=== PATIENT | male | born 1960 | race Caucasian/White ===

== ENCOUNTER 2018-04-15 11:24 | Day surgery (SDC) | payer MEDICARE ==
[2018-04-15] MEDS ORDERED: Marcaine 0.5% SDV 10 ML IJ ONE (11:25)
[2018-04-15] MEDS ORDERED: Xylocaine 1% Vial 30 ML PF IJ ONE (11:25)
[2018-04-15] MEDS ORDERED: Depo-Medrol 40 MG/ML IM ONE (11:25)
--- NOTE | 2018-04-15 14:24 | XRAY ---
Indication: Right knee injection. Intraoperative fluoroscopy was provided for 19 seconds. Single digital spot image submitted for interpretation demonstrates a needle tip projecting in the intercondylar notch. Small contrast injected for needle tip placement. Correlate with intraoperative findings/report.
--- NOTE | 2018-04-15 14:36 | XRAY ---
19 seconds of fluoroscopy was used in surgery for right knee injection.
== END 2018-04-15 13:50 | disposition home or self-care (01) ==
LOC: SDC-PAIN 11:24
PROVIDERS: ATTEND Psychiatry & Neurology Pain Medicine
DX: M17.11 Unilateral primary osteoarthritis, right knee (principal); M79.7 Fibromyalgia; M19.90 Unspecified osteoarthritis, unspecified site
CPT/HCPCS: 20610; 73560; 76000; 77002; J1030; J2001; Q9966

== ENCOUNTER 2018-06-24 09:54 | Day surgery (SDC) | payer MEDICARE ==
[2018-06-24] MEDS ORDERED: Marcaine 0.5% SDV 10 ML IJ ONE (09:55)
[2018-06-24] MEDS ORDERED: Depo-Medrol 40 MG/ML IM ONE (09:55)
[2018-06-24] MEDS ORDERED: Xylocaine 1% Vial 30 ML PF IJ ONE (09:55)
--- NOTE | 2018-06-24 13:57 | XRAY ---
Indication: Right shoulder injection. Intraoperative fluoroscopy was provided for 18 seconds. Single digital spot image submitted for interpretation demonstrates needle tip projecting superomedial humeral head. Small amount of contrast injected for needle tip placement. Correlate with intraoperative findings/report.
--- NOTE | 2018-06-24 14:20 | XRAY ---
18 seconds fluoroscopy time in surgery for right shoulder injection.
== END 2018-06-24 12:13 | disposition home or self-care (01) ==
LOC: SDC-PAIN 09:54
PROVIDERS: ATTEND Psychiatry & Neurology Pain Medicine
DX: M19.019 Primary osteoarthritis, unspecified shoulder (principal); I10 Essential (primary) hypertension; M79.7 Fibromyalgia; Z79.899 Other long term (current) drug therapy
CPT/HCPCS: 20611; 73030; 77002; J1030; J2001; Q9966

== ENCOUNTER 2020-05-31 14:29 | Day surgery (SDC) | payer MEDICARE ==
[2020-05-31] MEDS ORDERED: BUPIVACAINE 0.5% VIAL IJ ONE (14:30)
[2020-05-31] MEDS ORDERED: Xylocaine 1% Vial 30 ML PF IJ ONE (14:30)
--- NOTE | 2020-05-31 16:38 | XRAY ---
Indication: Right knee geniculate nerve block. Intraoperative fluoroscopy provided for 14 seconds. 2 digital spot images of the right knee submitted for interpretation demonstrates anterior needle tips projecting medial/lateral supracondylar and medial tibial plateau. Correlate with intraoperative findings/report.
--- NOTE | 2020-05-31 16:45 | XRAY ---
14 seconds of fluoroscopy was used in surgery for a right knee genicular nerve block.
== END 2020-05-31 16:30 | disposition home or self-care (01) ==
LOC: SDC-PAIN 14:29
PROVIDERS: ATTEND Psychiatry & Neurology Pain Medicine
DX: M17.11 Unilateral primary osteoarthritis, right knee (principal); I10 Essential (primary) hypertension; M79.7 Fibromyalgia; Z79.899 Other long term (current) drug therapy
CPT/HCPCS: 64454; 73560; 77002; J2001

== ENCOUNTER 2020-07-19 13:06 | Day surgery (SDC) | payer MEDICARE | END 2020-07-19 15:00 | disposition home or self-care (01) | LOC: SDC-PAIN 13:06 | PROVIDERS: ATTEND Psychiatry & Neurology Pain Medicine | DX: Z53.8 Procedure and treatment not carried out for other reasons (principal) ==

== ENCOUNTER 2020-08-02 12:17 | Day surgery (SDC) | payer MEDICARE ==
[2020-08-02] MEDS ORDERED: BUPIVACAINE 0.5% VIAL IJ ONE (12:18)
[2020-08-02] MEDS ORDERED: Xylocaine 1% Vial 30 ML PF IJ ONE (12:18)
[2020-08-02] MEDS ORDERED: Depo-Medrol 40 MG/ML IM ONE (12:18)
[2020-08-02] MEDS ORDERED: Lactated Ringers 1,000 ML IV ONE (14:42)
--- NOTE | 2020-08-02 15:22 | XRAY ---
Indication: Right knee genicular nerve block. Intraoperative fluoroscopy was provided for 18 seconds. 2 digital spot images of the right knee submitted for interpretation demonstrate anterior needle tips projecting medial/lateral supracondylar and medial tibial plateau. Correlate with intraoperative findings/report.
--- NOTE | 2020-08-02 16:22 | XRAY ---
18 seconds of fluoroscopy was used in surgery for a right knee genicular RFA.
== END 2020-08-02 14:41 | disposition home or self-care (01) ==
LOC: SDC-PAIN 12:17
PROVIDERS: ATTEND Psychiatry & Neurology Pain Medicine
DX: M17.11 Unilateral primary osteoarthritis, right knee (principal); I10 Essential (primary) hypertension; M79.7 Fibromyalgia
CPT/HCPCS: 64454; 73560; 77002; J1030; J2001

== ENCOUNTER 2021-03-14 12:43 | Day surgery (SDC) | payer MEDICARE ==
[2021-03-14] MEDS ORDERED: Xylocaine 1% Vial 30 ML PF IJ ONE (12:44)
[2021-03-14] MEDS ORDERED: Depo-Medrol 40 MG/ML IM ONE (12:44)
[2021-03-14] MEDS ORDERED: BUPIVACAINE 0.5% VIAL IJ ONE (12:44)
--- NOTE | 2021-03-14 15:24 | XRAY ---
Indication: Right shoulder injection. Intraoperative fluoroscopy provided for 23 seconds. 2 digital spot image submitted for interpretation demonstrates needle tip projecting over the right glenohumeral joint superiorly. Second needle tip subacromial. Small amount of contrast injected for both needle tip placement. Correlate with intraoperative findings/report.
--- NOTE | 2021-03-14 16:53 | XRAY ---
23 seconds fluoroscopy time in surgery for injection of the right shoulder.
== END 2021-03-14 15:08 | disposition home or self-care (01) ==
LOC: SDC-PAIN 12:43
PROVIDERS: ATTEND Psychiatry & Neurology Pain Medicine
DX: M19.011 Primary osteoarthritis, right shoulder (principal); M75.21 Bicipital tendinitis, right shoulder; I10 Essential (primary) hypertension; F41.9 Anxiety disorder, unspecified; F32.9 Major depressive disorder, single episode, unspecified; Z79.899 Other long term (current) drug therapy
CPT/HCPCS: 20610; 73030; 77002; J1030; J2001; Q9966

== ENCOUNTER 2021-03-20 13:46 | Emergency (ER) | payer MEDICARE ==
--- NOTE | 2021-03-20 13:51 | ERPHSYRPT ---
- History of Present Illness Time Seen by Provider: 03/20/21 13:50 Source: patient Exam Limitations: no limitations Physician History: This is a 61-year-old white male who presents with left lower quadrant abdominal pain associated diarrhea. He did notice some blood in some of the bowel movements in the last 2 days. Patient has not had a fever. He has had no vomiting present. He had a colonoscopy approximately 5 years ago which she said was normal. He has no chest pain. He has no shortness of breath. Timing/Duration: day(s) (2) Method of Injury: other (No injury) Quality: aching (Left lower quadrant), cramping Severity of Pain-Max: moderate Severity of Pain-Current: moderate Modifying Factors: Improves With: nothing Associated Symptoms: other (Diarrhea) Previous symptoms: no prior history Allergies/Adverse Reactions: Sulfa (Sulfonamide Antibiotics) Allergy (Severe, Verified 02/26/16 06:28) Hives Home Medications: Duloxetine HCl 30 mg [Cymbalta 30 MG Capsule] 60 mg PO DAILY 02/22/16 [His tory] Lisinopril 20 mg [Zestril 20 MG] 40 mg PO DAILY 02/22/16 [History] Travel Risk - International Travel Have you traveled outside of the country in past 3 weeks: No - Coronavirus Screening Are you exhibiting any of the following symptoms?: No Close contact with a COVID-19 positive Pt in past 14-21 Days: No - Review of Systems Constitutional: No Symptoms Eyes: No Symptoms Ears, Nose, & Throat: No Symptoms Respiratory: No Symptoms Cardiac: No Symptoms Abdominal/Gastrointestinal: Abdominal Pain, Diarrhea (Intermittent bloody) Genitourinary Symptoms: No Symptoms Musculoskeletal: No Symptoms Skin: No Symptoms Neurological: No Symptoms Psychological: No Symptoms Endocrine: No Symptoms Hematologic/Lymphatic: No Symptoms Immunological/Allergic: No Symptoms All Other Systems: Reviewed and Negative - Past Medical History Pertinent Past Medical History: No Neurological History: No Pertinent History ENT History: No Pertinent History Cardiac History: Hypertension Respiratory History: Pneumonia Endocrine Medical History: No Pertinent History Musculoskeletal History: Osteoarthritis GI Medical History: No Pertinent History History: No Pertinent History Psycho-Social History: Anxiety Male Reproductive Disorders: No Pertinent History Other Medical History: RECENT STRESS TEST WAS FINE EXCEPT STRENGTH OF CONTRACTION SO STARTED A NEW MED (PATIENT UNABLE TO RECALL NAME). HX RIGHT SHOULDER ROTATOR CUFF AND BICEPS TEAR - REPAIRED 2013 BUT STATES NOT DOING WELL AND GOING TO F/U WITH MD ABOUT IT AT NEXT VISIT - Past Surgical History Past Surgical History: Yes Neuro Surgical History: No Pertinent History Cardiac: No Pertinent History Respiratory: No Pertinent History Gastrointestinal: No Pertinent History Genitourinary: No Pertinent History Musculoskeletal: Other Male Surgical History: No Pertinent History Other Surgical History: Rotator cuff repair. - Social History Smoking Status: Former smoker Exposure to second hand smoke: No Drug Use: none - Nursing Vital Signs Nursing Vital Signs: Initial Vital Signs Temperature 99.0 F 03/20/21 13:59 Pulse Rate 85 03/20/21 13:59 Respiratory Rate 22 03/20/21 13:59 Blood Pressure 166/99 03/20/21 13:59 O2 Sat by Pulse Oximetry 99 03/20/21 13:59 Pain Scale Pain Intensity 5 - Physical Exam General Appearance: no apparent distress, alert, anxiety, obese Eye Exam: PERRL/EOMI, eyes nml inspection Ears, Nose, Throat Exam: normal ENT inspection, moist mucous membranes Neck Exam: normal inspection, non-tender, supple, full range of motion Respiratory Exam: normal breath sounds, lungs clear, airway intact, No chest tenderness, No respiratory distress Cardiovascular Exam: regular rate/rhythm, normal heart sounds, normal peripheral pulses Gastrointestinal Exam: soft, normal bowel sounds, tenderness (Left lower quadrant with guarding), guarding, rebound Rectal Exam: not done Back Exam: normal inspection, normal range of motion, No CVA tenderness, No vertebral tenderness Extremity Exam: normal inspection, normal range of motion, pelvis stable Neurologic Exam: alert, oriented x 3, cooperative, technology education instructor II-XII nml as tested, normal mood/affect, nml cerebellar function, nml station & gait, sensation nml Skin Exam: normal color, warm, dry Lymphatic Exam: No adenopathy SpO2 Interpretation: normal O2 Delivery: Room Air - Course Nursing assessment & vital signs reviewed: Yes Ordered Tests: Active Orders 24 hr Category Date Time Status IV Insertion STAT Care 03/20/21 14:13 Active ABDOMEN AND PELVIS W/0 CONTRAS [CT] Stat Exams 03/20/21 14:13 Completed AMYLASE Stat Lab 03/20/21 14:20 Completed CBC W DIFF Stat Lab 03/20/21 14:20 Completed CMP Stat Lab 03/20/21 14:20 Completed LIPASE Stat Lab 03/20/21 14:20 Completed Lactic Acid Stat Lab 03/20/21 14:25 Completed Manual Differential NC Stat Lab 03/20/21 14:20 Completed UA W/RFX UR CULTURE Stat Lab 03/20/21 14:19 Completed Medication Summary Generic Name Dose Route Start Last Admin Trade Name Jere PRN Reason Stop Dose Admin Sodium Chloride 1,000 mls @ 999 mls/hr 03/20/21 16:05 Sodium Chloride 0.9% 1000 Ml IV 03/20/21 17:05 .Q1H1M STA Discontinued Medications Generic Name Dose Route Start Last Admin Trade Name Jere PRN Reason Stop Dose Admin Ciprofloxacin 500 mg 03/20/21 16:06 Ciprofloxacin 500 Mg Tablet PO 03/20/21 16:07 STAT ONE Hydromorphone HCl 1 mg 03/20/21 14:13 03/20/21 14:32 Hydromorphone 1 Mg/1ml Inj 1 Mg/Ml Syringe IV 03/20/21 14:14 1 mg STAT ONE Administration Hydromorphone HCl Confirm 03/20/21 14:20 Hydromorphone 1 Mg/1ml Inj 1 Mg/Ml Syringe Administered 03/20/21 14:21 Dose 1 mg .ROUTE .STK-MED ONE Sodium Chloride 1,000 mls @ 999 mls/hr 03/20/21 14:13 03/20/21 14:29 Sodium Chloride 0.9% 1000 Ml IV 03/20/21 15:13 999 mls/hr .Q1H1M STA Administration Sodium Chloride Confirm 03/20/21 14:20 Sodium Chloride 0.9% 1000 Ml Administered 03/20/21 14:21 Dose 1,000 mls @ ud .ROUTE .STK-MED ONE Metronidazole 500 mg 03/20/21 16:07 Metronidazole 500 Mg Tablet PO 03/20/21 16:08 STAT ONE Ondansetron HCl 4 mg 03/20/21 14:13 03/20/21 14:31 Ondansetron Hcl 4 Mg/2 Ml Vial IV 03/20/21 14:14 4 mg STAT ONE Administration Ondansetron HCl Confirm 03/20/21 14:20 Ondansetron Hcl 4 Mg/2 Ml Vial Administered 03/20/21 14:21 Dose 4 mg .ROUTE .STK-MED ONE Lab/Rad Data: Laboratory Result Diagrams 03/20/21 14:20 03/20/21 14:20 Laboratory Results 03/20/21 03/20/21 03/20/21 Range/Units 14:25 14:20 14:20 WBC 22.8 H (4.0-10.5) K/mm3 RBC 4.99 (4.1-5.6) M/mm3 Hgb 16.0 (12.5-18.0) gm/dl Hct 46.9 (42-50) % MCV 94.0 (78-100) fl MCH 32.1 H (26-32) pg MCHC 34.1 (32-36) g/dl RDW 12.5 (11.5-14.0) % Plt Count 341 (150-450) K/mm3 MPV 9.2 (7.5-11.0) fl Segmented Neutrophils 79 H (36.-66.) % Band Neutrophils 3 H (0.0-2.0) % Lymphocytes (Manual) 10 L (24-44) % Monocytes (Manual) 7 (0.0-12.0) % Eosinophils (Manual) 1 (0.00-3.0) % Platelet Estimate NORMAL (NORMAL) RBC Morphology NORMAL Sodium 136 L (137-145) mmol/L Potassium 4.3 (3.5-5.1) mmol/L Chloride 103 (98-107) mmol/L Carbon Dioxide 19 L (22-30) mmol/L Anion Gap 18.5 H (5-15) MEQ/L BUN 16 (9-20) mg/dL Creatinine 0.90 (0.66-1.25) mg/dL Estimated GFR > 60.0 ML/MIN Glucose 146 H (74-106) mg/dL Lactic Acid 2.1 H (0.4-2.0) Calcium 9.0 (8.4-10.2) mg/dL Total Bilirubin 0.60 (0.2-1.3) mg/dL AST 25 (17-59) U/L ALT 32 (0-50) U/L Alkaline Phosphatase 85 (38-126) U/L Serum Total Protein 7.4 (6.3-8.2) g/dL Albumin 4.4 (3.5-5.0) g/dL Amylase 102 (30-110) U/L Lipase 113 (23-300) U/L Urine Color (YELLOW) Urine Appearance (CLEAR) Urine pH (5-6) Ur Specific [place] (1.005-1.025) Urine Protein (Negative) Urine Ketones (NEGATIVE) Urine Blood (0-5) Perry/ul Urine Nitrite (NEGATIVE) Urine Bilirubin (NEGATIVE) Urine Urobilinogen (0-1) mg/dL Ur Leukocyte Esterase (NEGATIVE) Urine WBC (Auto) (0-5) /HPF Urine RBC (Auto) (0-2) /HPF U Epithel Cells (Auto) (FEW) /HPF Urine Bacteria (Auto) (NEGATIVE) /HPF Urine Mucus (Auto) (NEGATIVE) /HPF Urine Culture Reflexed (NO) Urine Glucose (NEGATIVE) mg/dL 03/20/21 Range/Units 14:19 WBC (4.0-10.5) K/mm3 RBC (4.1-5.6) M/mm3 Hgb (12.5-18.0) gm/dl Hct (42-50) % MCV (78-100) fl MCH (26-32) pg MCHC (32-36) g/dl RDW (11.5-14.0) % Plt Count (150-450) K/mm3 MPV (7.5-11.0) fl Segmented Neutrophils (36.-66.) % Band Neutrophils (0.0-2.0) % Lymphocytes (Manual) (24-44) % Monocytes (Manual) (0.0-12.0) % Eosinophils (Manual) (0.00-3.0) % Platelet Estimate (NORMAL) RBC Morphology Sodium (137-145) mmol/L Potassium (3.5-5.1) mmol/L Chloride (98-107) mmol/L Carbon Dioxide (22-30) mmol/L Anion Gap (5-15) MEQ/L BUN (9-20) mg/dL Creatinine (0.66-1.25) mg/dL Estimated GFR ML/MIN Glucose (74-106) mg/dL Lactic Acid (0.4-2.0) Calcium (8.4-10.2) mg/dL Total Bilirubin (0.2-1.3) mg/dL AST (17-59) U/L ALT (0-50) U/L Alkaline Phosphatase (38-126) U/L Serum Total Protein (6.3-8.2) g/dL Albumin (3.5-5.0) g/dL Amylase (30-110) U/L Lipase (23-300) U/L Urine Color YELLOW (YELLOW) Urine Appearance SLIGHTLY CLOUDY (CLEAR) Urine pH 7.0 (5-6) Ur Specific [place] 1.025 (1.005-1.025) Urine Protein 100 (Negative) Urine Ketones SMALL (NEGATIVE) Urine Blood NEGATIVE (0-5) Perry/ul Urine Nitrite NEGATIVE (NEGATIVE) Urine Bilirubin NEGATIVE (NEGATIVE) Urine Urobilinogen NEGATIVE (0-1) mg/dL Ur Leukocyte Esterase NEGATIVE (NEGATIVE) Urine WBC (Auto) 0-2 (0-5) /HPF Urine RBC (Auto) 3-5 (0-2) /HPF U Epithel Cells (Auto) NONE (FEW) /HPF Urine Bacteria (Auto) NONE (NEGATIVE) /HPF Urine Mucus (Auto) SLIGHT (NEGATIVE) /HPF Urine Culture Reflexed NO (NO) Urine Glucose NEGATIVE (NEGATIVE) mg/dL - Progress Progress: improved, pain not gone completely Progress Note: 03/20/21 16:12 CAT scan of the abdomen and pelvis without contrast shows no abscess or perforation. However there is mild descending colitis present. Counseled pt/family regarding: lab results, diagnosis, need for follow-up, rad results - Departure Departure Disposition: Home Clinical Impression: Colitis Condition: Stable Critical Care Time: No Referrals: KALPANA PALUMBO MD [Primary Care Provider] - Follow up/PCP as directed Additional Instructions: Drink plenty of fluids. Take your antibiotics and pain medicine as prescribed. Follow-up with your primary care physician for further management. Return to the emergency department if your symptoms worsen. Prescriptions: Hydrocodone/APAP 5/325 [[place] 5/325 mg] 1 each PO Q8H PRN PRN #7 tablet MDD 3 PRN Reason: Pain Ciprofloxacin [Cipro 500 MG] 500 mg PO BID #14 tablet Metronidazole 500 mg [Flagyl 500 MG] 500 mg PO TID #21 tablet
[2021-03-20] MEDS ORDERED: Zofran 4 MG/2 ML VIAL IV ONE (14:13)
[2021-03-20] MEDS ORDERED: Sodium Chloride 0.9% 1000 ML 1,000 ML IV STA ×2 (14:13→16:05)
[2021-03-20] MEDS ORDERED: Hydromorphone 1 mg/ml Injection IV ONE (14:13)
[2021-03-20] MEDS ORDERED: Sodium Chloride 0.9% 1000 ML 1,000 ML ONE ×2 (14:20→16:12)
[2021-03-20] MEDS ORDERED: Hydromorphone 1 mg/ml Injection ONE (14:20)
[2021-03-20] MEDS ORDERED: Zofran 4 MG/2 ML VIAL ONE (14:20)
[2021-03-20 14:30] LABS: Appearance SLIGHTLY CLOUDY (CLEAR); Bilirubin NEGATIVE (NEGATIVE); Blood NEGATIVE Ery/ul (0-5); Glucose NEGATIVE (NEGATIVE); Ketones SMALL (NEGATIVE); Leukocyte Esterase NEGATIVE (NEGATIVE); Mucus SLIGHT /HPF (NEGATIVE); Nitrite NEGATIVE (NEGATIVE); Protein,Urine Dip 100 (Negative); Specific Gravity 1.025 (1.005-1.025); Urobilinogen NEGATIVE mg/dL (0-1); WBC 0-2 /HPF (0-5)
[2021-03-20 14:30] LABS: Hematocrit 46.9 % (42-50); Mean Corpuscular Hemoglobin 32.1 pg (26-32); Mean Corpuscular Hgb Concent. 34.1 g/dl (32-36); Mean Platelet Volume 9.2 fl (7.5-11.0); Platelet Count 341 K/mm3 (150-450); Red Blood Count 4.99 M/mm3 (4.1-5.6); Red Cell Distribution Width 12.5 % (11.5-14.0); White Blood Count 22.8 K/mm3 (4.0-10.5)
--- NOTE | 2021-03-20 14:41 | XRAY ---
Indication: Left lower quadrant pain. Blood in stool 2 days. Multiple contiguous axial images obtained through the abdomen and pelvis without contrast using renal stone protocol.. Comparison: None Lung bases demonstrates minimal bibasilar fibrosis/scarring. No infiltrate or effusion. Heart not enlarged. No renal calculus or evidence for obstructive uropathy in either system. Noncontrasted stomach and bowel loops appear nonobstructed with normal appendix. Entire descending colon demonstrates mild pericolonic stranding favoring colitis. No free fluid/air. Scattered sigmoid diverticulosis without diverticulitis. No free fluid/air. Mild diffuse fatty liver. Remaining liver, gallbladder, pancreas, spleen, adrenal glands, kidneys, ureters, and bladder are unremarkable for noncontrast exam. Mild scattered aortoiliac calcifications without AAA. Osseous structures intact with mild degenerative changes throughout the spine. Small fatty umbilical and bilateral inguinal hernias. Impression: 1. Negative renal calculus or evidence for obstructive uropathy. 2. Mild descending colitis. No complications. 3. Incidental fatty liver, sigmoid diverticulosis, degenerative spondylosis, and fatty umbilical/bilateral inguinal hernias.
[2021-03-20 14:46] LABS: ALBUMIN 4.4 g/dL (3.5-5.0); ALKALINE PHOSPHATASE 85 U/L (38-126); AMYLASE 102 U/L (30-110); ANION GAP 18.5 MEQ/L (5-15); BLOOD UREA NITROGEN 16 mg/dL (9-20); CHLORIDE 103 mmol/L (98-107); Carbon Dioxide 19 mmol/L (22-30); EST GLOMERULAR FILTRATION RATE > 60.0 ML/MIN; Glucose 146 mg/dL (74-106); LIPASE 113 U/L (23-300); Potassium 4.3 mmol/L (3.5-5.1); SGOT/AST 25 U/L (17-59); SGPT/ALT 32 U/L (0-50); SODIUM 136 mmol/L (137-145); Total Protein 7.4 g/dL (6.3-8.2)
[2021-03-20 14:52] LABS: BAND 3 % (0.0-2.0); Eosinophil 1 % (0.00-3.0); Lymphocytes 10 % (24-44); Monocyte 7 % (0.0-12.0); Neutrophils 79 % (36.-66.); Total Cells Counted 100
[2021-03-20 14:55] LABS: Platelet Estimate NORMAL (NORMAL)
[2021-03-20] MEDS ORDERED: Cipro 500 MG PO ONE (16:06)
[2021-03-20] MEDS ORDERED: Flagyl 500 MG PO ONE (16:07)
[2021-03-20] MEDS ORDERED: Cipro 500 MG ONE (16:12)
[2021-03-20] MEDS ORDERED: Flagyl 500 MG ONE (16:12)
== END 2021-03-20 17:23 | disposition home or self-care (01) ==
LOC: ED 13:46
DX: K52.9 Noninfective gastroenteritis and colitis, unspecified (principal); I10 Essential (primary) hypertension
CPT/HCPCS: 36000; 36415; 74176; 80053; 81001; 82150; 83605; 83690; 85025; 96360; 96361; 96374; 96375; 99284; J1170; J2405; A9270-GY

== ENCOUNTER 2022-09-25 14:34 | Day surgery (SDC) | payer MEDICARE ==
[2022-09-25] MEDS ORDERED: Depo-Medrol 40 MG/ML IM ONE (14:35)
[2022-09-25] MEDS ORDERED: BUPIVACAINE 0.5% VIAL IJ ONE (14:35)
[2022-09-25] MEDS ORDERED: DIPRIVAN 200 MG/20 ML IV ONE ×2 (16:27)
--- NOTE | 2022-09-25 16:56 | XRAY ---
Indication: Bilateral hip injection. Intraoperative fluoroscopy provided for 27 seconds. 2 digital spot image submitted for interpretation demonstrates needle tip projecting lateral to the left and right femur neck. Small amount of contrast injected for both needle tip placement. Correlate with intraoperative findings/report.
--- NOTE | 2022-09-25 17:20 | XRAY ---
27 seconds of fluoroscopy was used in surgery for bilateral hips intra-articular injections.
[2022-09-25] MEDS ORDERED: Lactated Ringers 1,000 ML IV ONE (17:44)
== END 2022-09-25 17:00 | disposition home or self-care (01) ==
LOC: SDC-PAIN 14:34
PROVIDERS: ATTEND Psychiatry & Neurology Pain Medicine
DX: M16.0 Bilateral primary osteoarthritis of hip (principal); Z79.899 Other long term (current) drug therapy
CPT/HCPCS: 20610; 73521; 77002; J1030; J2704; Q9966

== ENCOUNTER 2022-11-01 05:45 | Day surgery (SDC) | payer MEDICARE ==
[2022-11-01] MEDS ORDERED: CEFAZOLIN 2 GM-D5W BAG** 2 GM/50 ML ML IV SCH (06:30)
[2022-11-01] MEDS ORDERED: Lactated Ringers 1,000 ML IV SCH (06:30)
[2022-11-01 06:31] LABS: Hematocrit 40.4 % (42-50); Hemoglobin 13.1 g/dL (12.5-18.0); Mean Cell Volume 96.2 fL (78-100); Mean Corpuscular Hemoglobin 31.2 pg (26-32); Mean Corpuscular Hgb Concent. 32.4 g/dL (32-36); Mean Platelet Volume 9.1 fL (7.5-11.0); Platelet Count 280 x10^3/uL (150-450); Red Cell Distribution Width 12.4 % (11.5-14.0); White Blood Count 7.2 x10^3/uL (4.0-10.5)
[2022-11-01 06:47] LABS: INR 0.88 (0.8-3.0); PROTIME 9.7 SECONDS (9.4-12.5); PTT 26.6 SECONDS (25.1-36.5)
[2022-11-01 06:48] LABS: ALKALINE PHOSPHATASE 71 U/L (38-126); BLOOD UREA NITROGEN 27 mg/dL (9-20); CHLORIDE 108 mmol/L (98-107); Calcium 8.4 mg/dL (8.4-10.2); Carbon Dioxide 21 mmol/L (22-30); Creatinine 1 1.03 mg/dL (0.66-1.25); EST GLOMERULAR FILTRATION RATE > 60.0 ML/MIN; Glucose 125 mg/dL (74-106); Potassium 4.2 mmol/L (3.5-5.1); SGOT/AST 34 U/L (17-59); SGPT/ALT 34 U/L (0-50); SODIUM 140 mmol/L (137-145); Total Protein 6.9 g/dL (6.3-8.2)
[2022-11-01] MEDS ORDERED: Versed 2 MG/2 ML Injection ONE (06:57)
[2022-11-01] MEDS ORDERED: DIPRIVAN 200 MG/20 ML IV ONE (06:58)
[2022-11-01] MEDS ORDERED: SUBLIMAZE 100 MCG/2 ML ONE ×3 (06:58→09:08)
[2022-11-01] MEDS ORDERED: Zofran 4 MG/2 ML VIAL ONE (06:59)
[2022-11-01] MEDS ORDERED: Xylocaine-Mpf 2% 5 Ml Vial ONE (06:59)
[2022-11-01] MEDS ORDERED: DEXMEDETOMIDINE 80 MCG/20ML-NS IV ONE (06:59)
[2022-11-01] MEDS ORDERED: Zemuron 100 MG/10 ML ONE (06:59)
[2022-11-01] MEDS ORDERED: Marcaine Mpf 0.5% Vial 30 Ml ONE (06:59)
[2022-11-01] MEDS ORDERED: Quelicin Fliptop 200 MG/10 ML ONE (06:59)
[2022-11-01] MEDS ORDERED: Decadron 4 MG INJ ONE (06:59)
[2022-11-01] MEDS ORDERED: XYLOCAINE 1% HCL 20 ML MDV ONE (07:00)
[2022-11-01] MEDS ORDERED: OFIRMEV 100 ML IV ONE (07:05)
[2022-11-01] MEDS ORDERED: Pre-Attached Lta Kit TP ONE (07:05)
[2022-11-01] MEDS ORDERED: KEFZOL 1 GM ONE (07:35)
[2022-11-01] MEDS ORDERED: Lactated Ringers 1,000 ML IV ONE (08:28)
--- NOTE | 2022-11-01 09:08 | XRAY ---
Indication: Right metatarsal arthrodesis. Intraoperative fluoroscopy provided for 2 minute 21 seconds. 15 digital spot images submitted for interpretation ultimately demonstrates 1st MTP arthrodesis with intact fixation plate/screws. Correlate with intraoperative findings/report.
[2022-11-01] MEDS ORDERED: HYDROCODONE-ACETAMIN 10-325 MG PO ONE (10:01)
--- NOTE | 2022-11-01 10:04 | XRAY ---
Two minutes and 21 seconds of fluoroscopy was used in surgery for a right metatarsal arthrodesis.
[2022-11-01 10:12] VITALS: BP 114/73; PULSE 67; O2SAT 97
--- NOTE | 2022-11-01 13:13 | OP ---
SURGERY DATE/TIME: 11/01/2022 0707 PREOPERATIVE DIAGNOSES: 1) First metaphalangeal joint osteoarthritis, right. 2) Pain right foot. POSTOPERATIVE DIAGNOSES: 1) First metaphalangeal joint osteoarthritis, right. 2) Pain right foot. PROCEDURE: Arthrodesis first metatarsophalangeal joint. SURGEON: Arnulfo Yoon DPM. SILVERWARE BUFFING MACHINE OPERATOR: None. ANESTHESIA: General. HEMOSTASIS: Ankle tourniquet set to 250 mm of [place] for a total of 4 minutes. ESTIMATED BLOOD LOSS: Approximately 20 cc. MATERIALS: Richa A.L.P.S. 0-degree metatarsophalangeal right with variable locking and nonlocking screws as well as a 3.4 x 34 mm variable pitch screw interfragmentary compression, 4-0 Monocryl, 3-0 Nylon. INJECTABLES: 20 cc of a 1:1 mixture of 1% lidocaine plain and 0.5% bupivacaine plain injected in a Bach block-type fashion postoperatively. INDICATION FOR SURGERY: Daron is a very pleasant 62-year-old male who presented to my service for complaints of pain to the first metaphalangeal joint of the bilateral lower extremity. The patient was seeing pain management for his pain. However at this time, he indicated that he has been dealing with this issue for a long time and there is a significant amount of pain to the point where he restricting activities in order to alleviate the pain that he has been experiencing. He would like this problem fixed. He requested not to proceed with conservative management and would like the fix to be permanent. The patient understands all risks, complications and benefits of surgical intervention including but not limited to infection, hematoma, seroma, possibility of delayed wound healing, nonwound healing, possibility of delayed bone healing, nonbone healing and a situation called nonunion, possibility of irritating hardware and possible need for removal of hardware at a later date. The patient understands that no guarantees provided as to the outcome with that the patient wishes to proceed. DESCRIPTION OF PROCEDURE AND FINDINGS: The patient was brought into the OR and placed on the OR table in the supine position. At this time adequate anesthesia was administered until the patient was sedated. A well-padded ankle tourniquet was applied to the patient's right ankle and the tourniquet was set to 250 mm of Mercury. At this time the right foot was prepped and draped in the typical sterile fashion and lowered onto the surgical field. At this time a 10 blade was utilized to make a linear incision just medial to the extensor hallucis longus tendon. Careful dissection was carried down to the level of the metatarsophalangeal joint. The extensor hallucis longus was identified and soft tissue was reflected in order to retract it laterally. Visualization of the joint was made and a 15 blade was utilized to resect the capsule. At this time a significant amount of osteoarthritis was identified at the central aspect of the first metaphalangeal joint as well as spurring at the dorsal aspect of the first metatarsal. At this time a cup and cone conical reamer was utilized to remove any of the cartilage and down to the subchondral plate this was flushed with copious amounts of sterile saline. The joints were opposed and position was assessed. Distal locking screws were fixated into an A.L.P.S. 0-degree metatarsophalangeal right Richa plate. Position was assessed once again and deemed to be adequate. The eccentric compression slot was filled with a screw however not compressed all the way down setting the plate down to the level of the bone and compressing the joint. At this time, an interfragmentary screw was introduced from a distal medial to proximal lateral orientation. A 3.4 x 34 mm VPC screw was introduced, alternating compression was provided to the joint. Following this a combination of locking and nonlocking screws were utilized to fill the remaining holes in the plate. The capsular layer was closed utilizing 4-0 Monocryl. The subcutaneous layer was then coapted utilizing 4-0 Monocryl in a simple interrupted-type fashion and then the skin was coapted in a horizontal mattress-type fashion everting the skin edges utilizing 3-0 Nylon. Following this an injection consisting of 20 cc total of a 1:1 mixture of 1% lidocaine plain and 0.5% bupivacaine plain was injected into the right foot in a Bach block-type fashion. A dressing consisting of iodine, Adaptic, 4x4, Kerlix and EFRAIN was then applied to the right foot. The patient was then reversed from anesthesia and returned to the postoperative anesthesia care unit with vital signs stable and vascular status intact. The patient handled the anesthesia as well as the procedure without significant complication. Postoperative orders as indicated in the patient's discharge chart.
== END 2022-11-01 10:35 | disposition home or self-care (01) ==
LOC: SDC 05:45
PROVIDERS: ATTEND Podiatrist Foot & Ankle Surgery
DX: M19.071 Primary osteoarthritis, right ankle and foot (principal); M79.671 Pain in right foot; I10 Essential (primary) hypertension
CPT/HCPCS: 36415; 73630; 76000; 80053; 85027; 85610; 85730; 93005; C1713; J0330; J0690; J1100; J2250; J2405; J2704; J3010; A9270-GY

== ENCOUNTER 2023-01-14 11:59 | Day surgery (SDC) | payer MEDICARE ==
[2023-01-14] MEDS ORDERED: Lactated Ringers 1,000 ML IV SCH (12:30)
[2023-01-14] MEDS ORDERED: CEFAZOLIN 2 GM-D5W BAG** 2 GM/50 ML ML IV SCH (12:30)
[2023-01-14] MEDS ORDERED: XYLOCAINE 1% HCL 20 ML MDV ONE (12:43)
[2023-01-14] MEDS ORDERED: Marcaine Mpf 0.5% Vial 30 Ml ONE (12:43)
[2023-01-14 12:45] LABS: Hematocrit 39.1 % (42-50); Mean Cell Volume 93.3 fL (78-100); Mean Corpuscular Hgb Concent. 33.2 g/dL (32-36); Mean Platelet Volume 8.7 fL (7.5-11.0); Platelet Count 328 x10^3/uL (150-450); Red Blood Count 4.19 x10^6/uL (4.1-5.6); White Blood Count 5.3 x10^3/uL (4.0-10.5)
[2023-01-14 12:59] LABS: ALBUMIN 4.1 g/dL (3.5-5.0); ANION GAP 14.4 MEQ/L (5-15); BLOOD UREA NITROGEN 14 mg/dL (9-20); CHLORIDE 107 mmol/L (98-107); Calcium 8.8 mg/dL (8.4-10.2); Carbon Dioxide 23 mmol/L (22-30); Creatinine 1 0.85 mg/dL (0.66-1.25); EST GLOMERULAR FILTRATION RATE > 60.0 ML/MIN; Glucose 99 mg/dL (74-106); SGOT/AST 33 U/L (17-59); SGPT/ALT 30 U/L (0-50); SODIUM 139 mmol/L (137-145)
[2023-01-14 13:00] LABS: ALKALINE PHOSPHATASE 84 U/L (38-126); INR 0.89 (0.8-3.0); PROTIME 9.8 SECONDS (9.4-12.5); PTT 25.1 SECONDS (25.1-36.5)
[2023-01-14] MEDS ORDERED: Sodium Chloride 0.9% 1000 ML 1,000 ML IV STA (13:08)
[2023-01-14] MEDS ORDERED: Decadron 4 MG INJ ONE (14:53)
[2023-01-14] MEDS ORDERED: SUBLIMAZE 100 MCG/2 ML ONE ×2 (14:53→14:56)
[2023-01-14] MEDS ORDERED: Xylocaine-Mpf 2% 5 Ml Vial ONE (14:53)
[2023-01-14] MEDS ORDERED: DIPRIVAN 200 MG/20 ML IV ONE (14:53)
[2023-01-14] MEDS ORDERED: Zofran 4 MG/2 ML VIAL ONE (14:53)
[2023-01-14] MEDS ORDERED: Versed 2 MG/2 ML Injection ONE (14:54)
[2023-01-14] MEDS ORDERED: DEXMEDETOMIDINE 80 MCG/20ML-NS IV ONE (15:20)
[2023-01-14 17:37] VITALS: RESP 16
[2023-01-14 17:56] VITALS: BP 146/93; PULSE 59; TEMP 97.1; O2SAT 98
--- NOTE | 2023-01-14 19:31 | XRAY ---
Indication: Left 1st MTP arthrodesis. Intraoperative fluoroscopy provided for 2 minutes. 12 digital spot images submitted for interpretation ultimately demonstrates arthrodesis 1st MTP with intact fixation plate/screws. Correlate with intraoperative findings/report.
--- NOTE | 2023-01-15 09:00 | OP ---
SURGERY DATE/TIME: 01/14/2023 1508 PREOPERATIVE DIAGNOSES: 1) Osteoarthritis first metatarsophalangeal joint left foot. 2) Pain left foot. 3) Rheumatoid arthritis left foot. POSTOPERATIVE DIAGNOSES: 1) Osteoarthritis first metatarsophalangeal joint left foot. 2) Pain left foot. 3) Rheumatoid arthritis left foot. PROCEDURE: First metatarsophalangeal joint arthrodesis left foot. SURGEON: Arnulfo Yoon DPM. FITTER'S ASSISTANT: None. ANESTHESIA: General plus a postoperative block consisting of 20 cc total of a 1:1 mixture of 1% lidocaine plain and 0.5% bupivacaine plain injected in an ankle block-type fashion. HEMOSTASIS: Ankle tourniquet set to 250 mm of Mercury for a total of 60 total tourniquet minutes. ESTIMATED BLOOD LOSS: Minimal. MATERIALS: 4-0 Monocryl, 3-0 Nylon, Richa A.L.P.S. first metatarsophalangeal joint 0 degrees with a 4.0 x 42 MAX VPC screw. INJECTABLES: 20 cc of a 1:1 mixture of 1% lidocaine plain and 0.5% bupivacaine plain injected in a Bach block-type fashion to left foot. INDICATION FOR SURGERY: Daron is a very pleasant 63-year-old male well-known to my service for rheumatoid arthritis and significant osteoarthritis and hallux abductovalgus to the bilateral lower extremities. The patient did have his right foot first metaphalangeal joint fused with significant improvement in his pain. At this time the patient is wishing to proceed with the left foot as the arthritis is even worse in this foot however clinically less pain. At this time the patient understands all risks, benefits and complications of surgical intervention at this time including but not limited to infection, hematoma, seroma, possibility of delayed skin healing, nonskin healing, and possibility of failure of union in a situation called nonunion. No guarantees were provided as to the outcome of surgical intervention. At this time we decided to proceed. DESCRIPTION OF PROCEDURE AND FINDINGS: The patient was brought into the OR and placed on the OR table in the supine position. At this time general anesthesia was administered until the patient was sedated. A well-padded ankle tourniquet was applied to the patient's left ankle and the tourniquet was set to 250 mm of Mercury. At this time the left lower extremity was prepped and draped in the typical sterile fashion and lowered onto the surgical field. At this time attention was directed to the left foot. Esmarch was utilized to exsanguinate the foot. The tourniquet was inflated to 250 mm of Mercury. At this time a linear incision was made utilizing a 10 blade over the dorsal medial aspect of the extensor hallucis longus. Careful dissection was carried out to at least the extensor hallucis longus and soft tissue attachments this was carried down to the level of bone without damaging any neurovascular structures along the way. At this time the first metaphalangeal joint was identified and capsulotomy was performed in a J-stroke utilizing a 15 blade resecting the medial and lateral collateral ligaments. The joint was inspected which was completely obliterated eburnated at the cartilage to a smooth polished bone appearance. At this time cup and cone reamers were utilized to resect any remaining cartilage from the joint and down to the level of healthy bleeding bone this was carried out to the distal metatarsal head and the proximal interphalangeal base until cartilage was removed and healthy bleeding bone identified. At this time copious amounts of sterile saline were utilized to flush the surgical site. A 2 mm drill bit to fenestrate the surface of the bone and a Richa A.L.P.S. first metatarsophalangeal joint 0 degree plate was applied to the dorsal aspect of the joint, this was checked on multiple views and fluoroscopic guidance to assess position and placement of the plate as well as the toe relative to the metatarsal. Position was identified and distal locking screws were applied until the distal aspect of the plate was affixed to the proximal phalanx. The eccentric slot was drilled and an 18 mm cortical screw was introduced until barely engaging in the plate and then interfragmentary screw was placed 4.0 x 32 mm VPC coming between the two screws until adequate solid compression was provided. From that standpoint the remaining holes were filled with locking and nonlocking screws. Final shots were taken on fluoroscopy. Copious amounts of sterile saline were utilized again to flush the surgical site. 4-0 Monocryl was utilized to coapt the subcutaneous skin edges. 3-0 Nylon was utilized in a horizontal mattress-type fashion to coapt the skin in everted-type fashion utilizing a horizontal mattress-type suture. Following this copious amounts of sterile saline were utilized to flush the surgical site. A dressing consisting of Betadine, Adaptic, 4x4, Kerlix and EFRAIN was applied to the patient's left lower extremity. The patient was then reversed from anesthesia. Tourniquet time was measured to be 60 total tourniquet minutes. He was reversed from anesthesia and returned to the postoperative anesthesia care unit with vital signs stable and vascular status intact. The patient handled the anesthesia as well as the procedure without significant complication. Postoperative orders as indicated in the patient's discharge chart.
--- NOTE | 2023-01-15 09:59 | XRAY ---
Two minutes of fluoroscopy was used in surgery for left 1st MTP arthrodesis.
== END 2023-01-14 18:09 | disposition home or self-care (01) ==
LOC: SDC 11:59
PROVIDERS: ATTEND Podiatrist Foot & Ankle Surgery
DX: M19.072 Primary osteoarthritis, left ankle and foot (principal); M79.672 Pain in left foot; M06.9 Rheumatoid arthritis, unspecified; I10 Essential (primary) hypertension
CPT/HCPCS: 28750; 36415; 73630; 76000; 80053; 85027; 85610; 85730; 93005; J0690; J1100; J2250; J2405; J2704; J3010

== ENCOUNTER 2023-03-21 07:15 | Day surgery (SDC) | payer MEDICARE ==
[2023-03-21] MEDS ORDERED: CEFAZOLIN 2 GM-D5W BAG** 2 GM/50 ML ML IV ONE (07:29)
[2023-03-21] MEDS ORDERED: Lactated Ringers 1,000 ML IV SCH (07:30)
[2023-03-21 07:54] VITALS: RESP 18
[2023-03-21] MEDS ORDERED: CEFAZOLIN 2 GM-D5W BAG** 2 GM/50 ML ML IV SCH (08:00)
[2023-03-21 08:01] LABS: Hematocrit 41.4 % (42-50); Hemoglobin 13.4 g/dL (12.5-18.0); Mean Cell Volume 96.7 fL (78-100); Mean Corpuscular Hemoglobin 31.3 pg (26-32); Mean Corpuscular Hgb Concent. 32.4 g/dL (32-36); Mean Platelet Volume 9.1 fL (7.5-11.0); Platelet Count 303 x10^3/uL (150-450); Red Blood Count 4.28 x10^6/uL (4.1-5.6); Red Cell Distribution Width 12.4 % (11.5-14.0); White Blood Count 6.4 x10^3/uL (4.0-10.5)
[2023-03-21 08:08] LABS: ALBUMIN 4.2 g/dL (3.5-5.0); ANION GAP 13.8 MEQ/L (5-15); BILIRUBIN,TOTAL 0.6 mg/dL (0.2-1.3); Calcium 9.5 mg/dL (8.4-10.2); Creatinine 1 0.9 mg/dL (0.66-1.25); EST GLOMERULAR FILTRATION RATE 95.4 ML/MIN; Potassium 4.8 mmol/L (3.5-5.1); Total Protein 7.1 g/dL (6.3-8.2)
[2023-03-21 08:10] LABS: INR 0.96 (0.8-3.0); PROTIME 10.5 SECONDS (9.4-12.5); PTT 27.4 SECONDS (25.1-36.5)
[2023-03-21] MEDS ORDERED: DIPRIVAN 200 MG/20 ML IV ONE ×5 (09:25→11:15)
[2023-03-21] MEDS ORDERED: SUBLIMAZE 100 MCG/2 ML ONE (09:25)
[2023-03-21] MEDS ORDERED: Xylocaine-Mpf 2% 5 Ml Vial ONE (09:25)
[2023-03-21] MEDS ORDERED: Versed 2 MG/2 ML Injection ONE (09:25)
[2023-03-21] MEDS ORDERED: Marcaine Mpf 0.5% Vial 30 Ml ONE (09:41)
[2023-03-21] MEDS ORDERED: XYLOCAINE 1% HCL 20 ML MDV ONE (09:41)
[2023-03-21] MEDS ORDERED: Lactated Ringers 1,000 ML IV ONE (10:21)
--- NOTE | 2023-03-21 11:56 | XRAY ---
Indication: Right foot hardware removal and replacement. Intraoperative fluoroscopy provided for 3 minutes 56 seconds. 23 digital spot images submitted for interpretation demonstrates revision 1st MTP arthrodesis with new intact fixation plate/screws. Correlate with intraoperative findings/report.
[2023-03-21 13:28] VITALS: TEMP 96.6
[2023-03-21 13:38] VITALS: BP 172/88; PULSE 56; O2SAT 98
--- NOTE | 2023-03-21 15:15 | XRAY ---
3 min 56 seconds of fluoroscopy was used in surgery for a right foot hardware removal and replacement.
--- NOTE | 2023-03-24 09:39 | OP ---
SURGERY DATE/TIME: 03/21/2023 0954 PREOPERATIVE DIAGNOSES: 1) Painful orthopedic hardware in situ. 2) Nonunion right first metatarsophalangeal joint. 3) Pain right foot. POSTOPERATIVE DIAGNOSES: 1) Painful orthopedic hardware in situ. 2) Nonunion right first metatarsophalangeal joint. 3) Pain right foot. PROCEDURES: 1) Removal of painful hardware. 2) Repair of nonunion. 3) Revision of first metatarsophalangeal joint arthrodesis. 4) Bone marrow aspirate harvest. SURGEON: Arnulfo Yoon DPM. SWATCHER: None. ANESTHESIA: Monitored anesthesia care with intraoperative local block consisting of a Bach block to the first ray consisting of 20 cc of a 1:1 mixture of 1% lidocaine plain and 0.5% bupivacaine plain and then 10 cc block to the posterior calcaneus in a V block-type fashion to the right lateral calcaneus. HEMOSTASIS: Ankle tourniquet set to 250 mm of Mercury for approximately 115 total tourniquet minutes. ESTIMATED BLOOD LOSS: Approximately 10 cc. MATERIALS: Medline standard revision first metatarsophalangeal joint plate with a 4.0 x 24 fully threaded screw along with cancellous chips for which the bone marrow aspirate was soaked. INJECTABLES: A total of 30 cc of a 1:1 mixture of 1% lidocaine plain and 0.5% bupivacaine plain injected respectively and 20 cc to the right foot in a Bach block-type fashion to the right foot and a V block to the lateral calcaneal wall of the right foot. INDICATION FOR SURGERY: Daron is a very pleasant 63-year-old male very well known to our service for rheumatoid arthritis and significant pain to the first metatarsophalangeal joint to the bilateral lower extremity. The patient had his right foot taken care of first when we initiated the process of addressing his osteoarthritis or rheumatoid arthritis with significant arthritis effecting the first metatarsophalangeal joint bilaterally. The patient opted to do both first metatarsophalangeal joints and had been in pain for quite some time. Following the procedure, he did have some relief to the right side however did have an event where he was required to be up and on his feet and did bend down and try to bend his toe behind him. Since then he had a significant amount of pain and given the stability of the hardware was felt to have potentially gout where he has most of his complaints were isolated to the distal interphalangeal joint. He did demonstrate hyperuricemia and was treated for gout with some improvement of his pain. We did proceed with the left lower extremity despite his pain and noted that he had absolutely no pain with the left lower extremity from the time the procedure was performed. The patient required further assessment of the first metatarsophalangeal joint demonstrating some motion along with radiolucency through the metatarsal side for which we decided to proceed with the repair of nonunion and removal of old hardware. From that standpoint, the patient understands all risks, complications and benefits of surgical intervention at this time including but not limited to infection, hematoma, seroma, possibility of delayed wound healing, nonwound healing, possibility of delayed bone healing, possibility of nonunion once again as was the case of the first instance. The patient understands all of these risks. There has been no guarantee provided as to the surgical outcome. The patient was made aware we will be aggressive in addressing the deformity as well as the nonunion in hopes to correct for his pain. Plenty of time was allowed for the patient to ask questions which were answered to his apparent satisfaction. It is at this time we decided to proceed. DESCRIPTION OF PROCEDURE AND FINDINGS: The patient was brought into the OR and placed on the OR table in the supine position. At this time, monitored anesthesia care was administered until the patient was sedated. A well-padded ankle tourniquet was applied to the patient's right ankle and the right foot was prepped and draped in the typical sterile fashion. At this time attention was directed to the lateral wall of the calcaneus where a V block was performed as well as a Bach block to the first ray was performed utilizing a total of 30 cc of a 1:1 mixture of 1% lidocaine plain and 0.5% bupivacaine plain. From this standpoint, a bone marrow aspirate harvest was obtained. Esmarch was utilized to exsanguinate the foot and it was inflated to 250 mm of Mercury. At this time the hardware was removed following the same foot print of the incision from the first metatarsophalangeal joint arthrodesis initially. Hardware was fairly loose. Three of the screws were able to be hand pulled out. 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 After significant joint prep utilizing cup and conical reamer, the tourniquet was let down to check for healthy bone bleeding. Cystic structures were noted within the base of the medial proximal phalanx. It was at this time we decided to utilize the bone marrow aspirate as well as cortical cancellous chips in order to back fill the cyst-like structures and also augment the fusion site. From this standpoint, the joint was prepped significantly utilizing fenestration, fish scaling and curettage to further uncover the subchondral plate on the metatarsal and the proximal phalangeal base side. Once approximated appropriately, a K-wire was introduced from a distal medial to proximal lateral orientation this position was held utilizing a crossing screw, a crossing wire and then a dorsal midline standard revision first metatarsophalangeal joint plate was introduced dorsally. Position was checked. Distal locking screws were placed due to previous drill holes and complications as a result of these drill holes lining up with both of our eccentric screw locations. The decision was made to lag by compromise and utilize the interfragmentary screw as well as the lagging screw compromise to lock in the position which was deemed to be excellent on all the AP, mortise and lateral positions postoperatively. A combination of locking and nonlocking screws were introduced. A 4.0 x 24 mm fully threaded screw was introduced in the opposite orientation of the previous screw which was headed gaining adequate compression through the first metatarsophalangeal joint. At this time the tourniquet was let down at a total of 115 total tourniquet minutes. A capsular repair was performed utilizing 4-0 Monocryl. 4-0 Monocryl then once again used to coapt the subcutaneous skin edges in a simple interrupted buried-type fashion and the skin was coapted utilizing 3-0 Nylon in a horizontal mattress-type fashion. From this standpoint, a dressing consisting of Betadine, Adaptic, 4x4, Kerlix and EFRAIN was applied to the patient's right lower extremity. The patient was then reversed from anesthesia and returned to the postoperative anesthesia care unit with vital signs stable and vascular status intact. The patient handled the anesthesia as well as the procedure without significant complication. Postoperative orders as indicated in the patient's discharge chart.
== END 2023-03-21 13:50 | disposition home or self-care (01) ==
LOC: SDC 07:15
PROVIDERS: ATTEND Podiatrist Foot & Ankle Surgery
DX: T84.84XA Pain due to internal orthopedic prosthetic devices, implants and grafts, initial encounter (principal); S92.314A Nondisplaced fracture of first metatarsal bone, right foot, initial encounter for closed fracture; M79.671 Pain in right foot
CPT/HCPCS: 36415; 73630; 76000; 80053; 85027; 85610; 85730; C1713; C1762; J0690; J2250; J2704; J3010

== ENCOUNTER 2023-07-02 13:46 | Day surgery (SDC) | payer MEDICARE ==
[2023-07-02] MEDS ORDERED: Depo-Medrol 40 MG/ML IM ONE (13:47)
[2023-07-02] MEDS ORDERED: BUPIVACAINE 0.5% VIAL IJ ONE (13:47)
[2023-07-02] MEDS ORDERED: DIPRIVAN 200 MG/20 ML IV ONE (15:28)
[2023-07-02] MEDS ORDERED: Lactated Ringers 1,000 ML IV ONE (15:32)
--- NOTE | 2023-07-02 16:47 | XRAY ---
16 seconds of fluoroscopy was used in surgery for a bilateral intra-articular hip injection.
--- NOTE | 2023-07-02 16:48 | XRAY ---
Indication: Bilateral hip injection. Intraoperative fluoroscopy provided for 16 seconds. 2 digital spot image submitted for interpretation demonstrates needle tip projecting lateral to left and right femur necks. Small amount of contrast injected for both needle tip placement. Correlate with intraoperative findings/report.
== END 2023-07-02 15:58 | disposition home or self-care (01) ==
LOC: SDC-PAIN 13:46
PROVIDERS: ATTEND Psychiatry & Neurology Pain Medicine
DX: M16.0 Bilateral primary osteoarthritis of hip (principal)
CPT/HCPCS: 20610; 73521; 77002; J1030; J2704; Q9966

== ENCOUNTER 2023-08-14 15:09 | Day surgery (SDC) | payer MEDICARE ==
[2023-08-14] MEDS ORDERED: BUPIVACAINE 0.5% VIAL IJ ONE (15:10)
[2023-08-14] MEDS ORDERED: Depo-Medrol 40 MG/ML IM ONE (15:10)
[2023-08-14] MEDS ORDERED: LIDOCAINE HCL 1% 50 MG/5 ML VL PF IJ ONE (15:10)
--- NOTE | 2023-08-14 20:39 | XRAY ---
Indication: Bilateral SI joint injection. Intraoperative fluoroscopy provided for 20 seconds. 3 digital spot image submitted for interpretation demonstrates posterior needle tips projecting over left and right SI joints with small amount of contrast injected for needle tip placement. Correlate with intraoperative findings/report.
--- NOTE | 2023-08-15 10:12 | XRAY ---
20 seconds of fluoroscopy was used in surgery for a bilateral sacroiliac joint injection.
== END 2023-08-14 17:15 | disposition home or self-care (01) ==
LOC: SDC-PAIN 15:09
PROVIDERS: ATTEND Psychiatry & Neurology Pain Medicine
DX: M46.1 Sacroiliitis, not elsewhere classified (principal)
CPT/HCPCS: 27096; 72202; 77002; G0260; J1010; J2001; Q9966; J1030

== ENCOUNTER 2023-12-06 09:35 | Emergency (ER) | payer MEDICARE ==
--- NOTE | 2023-12-06 09:36 | ERPHSYRPT ---
- History of Present Illness Time Seen by Provider: 12/06/23 09:36 Historian: patient, family Exam Limitations: no limitations Physician History: This is an overweight 63-year-old white male patient of primary care physician Dr. Palumbo who also sees a pain specialist for chronic pain issues and presents with intractable vomiting without chest pain or significant abdominal pain for just over 2 days. Patient states that Friday, prior to arrival, he woke up feeling fine and was fine throughout the day. In the evening of Friday prior to arrival him and his went up to dinner and by template clerk on prior to arrival, he began having vomiting episodes. He has been unable to take his medications. His has not had similar symptoms. Patient has never had anything like this before. Patient denies diarrhea symptoms. Patient has a history of depression, anxiety, hypertension, hyperlipidemia, chronic pain issues and osteoarthritis. Patient was brought into the emergency department by the paramedics. Timing/Duration: day(s) (Just over 2 days), worse Activities at Onset: none Severity of Pain-Max: none Severity of Pain-Current: none Modifying Factors: Improves With: vomiting Associated Symptoms: loss of appetite, nausea, vomiting, weakness, No chest pain, No diarrhea, No fever/chills, No neck pain Previous symptoms: no prior history, no recent treatment Allergies/Adverse Reactions: Sulfa (Sulfonamide Antibiotics) Allergy (Severe, Verified 03/21/23 07:34) Hives Home Medications: Lisinopril 20 mg [Zestril 20 MG] 20 mg PO DAILY 02/22/16 [History] Bupropion HCl Xl 150 mg [Wellbutrin XL 150 MG] 150 mg PO DAILY 10/28/22 [History] Gabapentin [Neurontin ] 400 mg PO TID 10/28/22 [History] Hydroxyzine HCl 25 mg [Atarax 25 mg] 50 mg PO UD 10/28/22 [History] Nabumetone 500 mg PO BID 10/28/22 [History] Simvastatin 20Mg [Zocor 20Mg] 40 mg PO DAILY 10/28/22 [History] Loratadine 10 mg [Claritin 10 mg] 10 mg PO DAILY 12/06/23 [History] Hx Tetanus, Diphtheria Vaccination/Date Given: Yes Hx Influenza Vaccination/Date Given: Yes Hx Pneumococcal Vaccination/Date Given: No Travel Risk - International Travel Have you traveled outside of the country in past 3 weeks: No - Emerging Infectious Disease Are you exhibiting symptoms associated with any current EIDs: Yes Symptoms: Vomitting - Review of Systems Constitutional: Weakness Eyes: No Symptoms Ears, Nose, & Throat: No Symptoms Respiratory: No Symptoms Cardiac: No Symptoms Abdominal/Gastrointestinal: Nausea, Vomiting, Appetite Changes, No Abdominal Pain, No Diarrhea, No Constipation Genitourinary Symptoms: No Symptoms Musculoskeletal: No Symptoms Skin: No Symptoms Neurological: No Symptoms Psychological: No Symptoms Endocrine: No Symptoms Hematologic/Lymphatic: No Symptoms Immunological/Allergic: No Symptoms All Other Systems: Reviewed and Negative - Past Medical History Pertinent Past Medical History: No Neurological History: No Pertinent History ENT History: No Pertinent History Cardiac History: High Cholesterol, Hypertension Respiratory History: No Pertinent History Endocrine Medical History: No Pertinent History Musculoskeletal History: Osteoarthritis GI Medical History: No Pertinent History History: No Pertinent History Psycho-Social History: Anxiety Male Reproductive Disorders: No Pertinent History Other Medical History: HX OF RIGHT ROTATOR CUFF AND BICEPS REPAIR APPROXIMATELY 2014 - Past Surgical History Past Surgical History: Yes Neuro Surgical History: No Pertinent History Cardiac: No Pertinent History Respiratory: No Pertinent History Gastrointestinal: No Pertinent History Genitourinary: No Pertinent History Musculoskeletal: Other Male Surgical History: No Pertinent History Other Surgical History: Rotator cuff repair. orthoscopic both knees. hardware in both feet - Social History Smoking Status: Never smoker Exposure to second hand smoke: No Drug Use: none Patient Lives Alone: No - Nursing Vital Signs Nursing Vital Signs: Initial Vital Signs Temperature 97.5 F 12/06/23 09:35 Pulse Rate 85 12/06/23 09:35 Respiratory Rate 20 12/06/23 09:35 Blood Pressure 161/116 12/06/23 09:35 O2 Sat by Pulse Oximetry 97 12/06/23 09:35 Pain Scale Pain Intensity 0 - Physical Exam General Appearance: mild distress, alert, anxiety, obese Eye Exam: PERRL/EOMI, eyes nml inspection Ears, Nose, Throat Exam: normal ENT inspection, moist mucous membranes Neck Exam: normal inspection, non-tender, supple, full range of motion Respiratory Exam: normal breath sounds, lungs clear, airway intact, No chest tenderness, No respiratory distress Cardiovascular Exam: regular rate/rhythm, normal heart sounds, normal peripheral pulses Gastrointestinal/Abdomen Exam: soft, normal bowel sounds, No tenderness Rectal Exam: not done Back Exam: normal inspection, normal range of motion, No CVA tenderness, No vertebral tenderness Extremity Exam: normal inspection, normal range of motion, pelvis stable Neurologic Exam: alert, oriented x 3, cooperative, manager wellness II-XII nml as tested, sensation nml Skin Exam: normal color, warm, dry Lymphatic Exam: No adenopathy SpO2 Interpretation: normal O2 Delivery: Room Air - Course Nursing assessment & vital signs reviewed: Yes Ordered Tests: Active Orders 24 hr Category Date Time Status EKG-ER Only STAT Care 12/06/23 09:51 Active IV Insertion STAT Care 12/06/23 09:51 Active ABDOMEN AND PELVIS W/0 CONTRAS [CT] Stat Exams 12/06/23 09:51 Completed AMYLASE Stat Lab 12/06/23 09:30 Completed CBC W DIFF Stat Lab 12/06/23 09:30 Completed CMP Stat Lab 12/06/23 09:30 Completed LIPASE Stat Lab 12/06/23 09:30 Completed Lactic Acid Stat Lab 12/06/23 09:51 Completed MAG [MAGNESIUM] Stat Lab 12/06/23 09:30 Completed MONO SCREEN Stat Lab 12/06/23 09:30 Completed TROPONIN Q4H Lab 12/06/23 09:30 Completed TROPONIN Q4H Lab 12/06/23 14:00 Ordered TROPONIN Q4H Lab 12/06/23 18:00 Ordered UA W/RFX UR CULTURE Stat Lab 12/06/23 12:04 Completed Medication Summary Discontinued Medications Generic Name Dose Route Start Last Admin Trade Name Jere PRN Reason Stop Dose Admin Sodium Chloride 1,000 mls @ 999 mls/hr 12/06/23 09:51 12/06/23 11:15 Sodium Chloride 0.9% 1000 Ml IV 12/06/23 10:51 Infused .Q1H1M STA Infusion Sodium Chloride Confirm 12/06/23 10:02 Sodium Chloride 0.9% 1000 Ml Administered 12/06/23 10:03 Dose 1,000 mls @ ud .ROUTE .STK-MED ONE Lactated Ringer's 1,000 mls @ 999 mls/hr 12/06/23 10:48 12/06/23 12:44 Lactated Ringers IV 12/06/23 11:48 Infused .Q1H1M ONE Infusion Lactated Ringer's Confirm 12/06/23 10:54 Lactated Ringers Administered 12/06/23 10:55 Dose 1,000 mls @ ud IV .STK-MED ONE Ondansetron HCl 4 mg 12/06/23 10:47 12/06/23 10:55 Ondansetron Hcl 4 Mg/2 Ml Vial IV 12/06/23 10:48 4 mg STAT ONE Administration Ondansetron HCl Confirm 12/06/23 10:54 Ondansetron Hcl 4 Mg/2 Ml Vial Administered 12/06/23 10:55 Dose 4 mg .ROUTE .STK-MED ONE Pantoprazole Sodium 40 mg 12/06/23 09:51 12/06/23 10:04 Pantoprazole 40 Mg Vial IV 12/06/23 09:52 40 mg STAT ONE Administration Pantoprazole Sodium Confirm 12/06/23 10:02 Pantoprazole 40 Mg Vial Administered 12/06/23 10:03 Dose 40 mg IV .STK-MED ONE Prochlorperazine Edisylate 5 mg 12/06/23 09:51 12/06/23 10:04 Prochlorperazine Edisylate 10 Mg/2 Ml Vial IV 12/06/23 09:52 5 mg STAT ONE Administration Prochlorperazine Edisylate Confirm 12/06/23 10:02 Prochlorperazine Edisylate 10 Mg/2 Ml Vial Administered 12/06/23 10:03 Dose 10 mg .ROUTE .STK-MED ONE Lab/Rad Data: Laboratory Result Diagrams 12/06/23 09:30 12/06/23 09:30 Laboratory Results 12/06/23 12/06/23 12/06/23 Range/Units 12:04 10:00 09:51 WBC (4.23-9.07) x10^3/uL RBC (4.63-6.08) x10^6/uL Hgb (13.7-17.5) g/dL Hct (40.1-51.0) % MCV (79.0-92.2) fL MCH (25.7-32.2) pg MCHC (32.3-36.5) g/dL RDW (11.6-14.4) % Plt Count (163-337) x10^3/uL MPV (9.4-12.4) fL Gran % (34.0-67.9) % Immature Gran % (Auto) (0.001-0.429) % Nucleat RBC Rel Count (0.00-0.2) % Eos # (Auto) (0.04-0.54) x10^3/uL Immature Gran # (Auto) (0.001-0.031) x10^3u/L Absolute Lymphs (auto) (1.32-3.57) x10^3/uL Absolute Monos (auto) (0.30-0.82) x10^3/uL Absolute Nucleated RBC (0.00-0.012) x10^3u/L Lymphocytes % (21.8-53.1) % Monocytes % (5.3-12.2) % Eosinophils % (0.8-7.0) % Basophils % (0.2-1.2) % Absolute Granulocytes (1.78-5.38) x10^3/uL Basophils # (0.01-0.08) x10^3/uL Sodium (135-145) mmol/L Potassium (3.5-5.1) mmol/L Chloride (98-107) mmol/L Carbon Dioxide (22-30) mmol/L Anion Gap (5-15) MEQ/L BUN (9-20) mg/dL Creatinine (0.66-1.25) mg/dL Estimated GFR ML/MIN Glucose (74-106) mg/dL Lactic Acid 1.2 (0.4-2.0) Calcium (8.4-10.2) mg/dL Magnesium (1.6-2.3) mg/dL Total Bilirubin (0.2-1.3) mg/dL AST (17-59) U/L ALT (0-50) U/L Alkaline Phosphatase (38-126) U/L Troponin I (0.000-0.033) ng/mL Serum Total Protein (6.3-8.2) g/dL Albumin (3.5-5.0) g/dL Amylase (30-110) U/L Lipase (23-300) U/L Urine Color Yellow (Yellow) Urine Appearance Clear (Clear) Urine pH 7.0 (4.6-8.0) Ur Specific Bruno 1.025 (1.005-1.030) Urine Protein 30 (Negative) Urine Glucose (UA) Negative (Negative) mg/dL Urine Ketones 80 A (Negative) Urine Blood Negative (Negative) Urine Nitrite Negative (Negative) Urine Bilirubin Negative (Negative) Urine Urobilinogen 1.0 A (0.2) mg/dL Ur Leukocyte Esterase Negative (Negative) U Hyaline Cast (Auto) NONE SEEN (0-2) /LPF Urine Microscopic RBC 3-5 (0-5) /HPF Urine Microscopic WBC 0-2 (0-5) /HPF Ur Epithelial Cells None Seen (None Seen) /HPF Urine Bacteria None Seen (None Seen) /HPF Urine Culture Reflexed NO (NO) Monoscreen (NEGATIVE) Influenza Type A Ag NEGATIVE (NEGATIVE) Influenza Type B Ag NEGATIVE (NEGATIVE) RSV (PCR) NEGATIVE (NEGATIVE) SARS-CoV-2 (PCR) NEGATIVE (NEGATIVE) 12/06/23 12/06/23 12/06/23 Range/Units 09:30 09:30 09:30 WBC (4.23-9.07) x10^3/uL RBC (4.63-6.08) x10^6/uL Hgb (13.7-17.5) g/dL Hct (40.1-51.0) % MCV (79.0-92.2) fL MCH (25.7-32.2) pg MCHC (32.3-36.5) g/dL RDW (11.6-14.4) % Plt Count (163-337) x10^3/uL MPV (9.4-12.4) fL Gran % (34.0-67.9) % Immature Gran % (Auto) (0.001-0.429) % Nucleat RBC Rel Count (0.00-0.2) % Eos # (Auto) (0.04-0.54) x10^3/uL Immature Gran # (Auto) (0.001-0.031) x10^3u/L Absolute Lymphs (auto) (1.32-3.57) x10^3/uL Absolute Monos (auto) (0.30-0.82) x10^3/uL Absolute Nucleated RBC (0.00-0.012) x10^3u/L Lymphocytes % (21.8-53.1) % Monocytes % (5.3-12.2) % Eosinophils % (0.8-7.0) % Basophils % (0.2-1.2) % Absolute Granulocytes (1.78-5.38) x10^3/uL Basophils # (0.01-0.08) x10^3/uL Sodium (135-145) mmol/L Potassium (3.5-5.1) mmol/L Chloride (98-107) mmol/L Carbon Dioxide (22-30) mmol/L Anion Gap (5-15) MEQ/L BUN (9-20) mg/dL Creatinine (0.66-1.25) mg/dL Estimated GFR ML/MIN Glucose (74-106) mg/dL Lactic Acid (0.4-2.0) Calcium (8.4-10.2) mg/dL Magnesium 2.4 H (1.6-2.3) mg/dL Total Bilirubin (0.2-1.3) mg/dL AST (17-59) U/L ALT (0-50) U/L Alkaline Phosphatase (38-126) U/L Troponin I < 0.012 (0.000-0.033) ng/mL Serum Total Protein (6.3-8.2) g/dL Albumin (3.5-5.0) g/dL Amylase (30-110) U/L Lipase (23-300) U/L Urine Color (Yellow) Urine Appearance (Clear) Urine pH (4.6-8.0) Ur Specific Bruno (1.005-1.030) Urine Protein (Negative) Urine Glucose (UA) (Negative) mg/dL Urine Ketones (Negative) Urine Blood (Negative) Urine Nitrite (Negative) Urine Bilirubin (Negative) Urine Urobilinogen (0.2) mg/dL Ur Leukocyte Esterase (Negative) U Hyaline Cast (Auto) (0-2) /LPF Urine Microscopic RBC (0-5) /HPF Urine Microscopic WBC (0-5) /HPF Ur Epithelial Cells (None Seen) /HPF Urine Bacteria (None Seen) /HPF Urine Culture Reflexed (NO) Monoscreen NEGATIVE (NEGATIVE) Influenza Type A Ag (NEGATIVE) Influenza Type B Ag (NEGATIVE) RSV (PCR) (NEGATIVE) SARS-CoV-2 (PCR) (NEGATIVE) 12/06/23 12/06/23 Range/Units 09:30 09:30 WBC 8.9 (4.23-9.07) x10^3/uL RBC 4.85 (4.63-6.08) x10^6/uL Hgb 15.3 (13.7-17.5) g/dL Hct 43.8 (40.1-51.0) % MCV 90.3 (79.0-92.2) fL MCH 31.5 (25.7-32.2) pg MCHC 34.9 (32.3-36.5) g/dL RDW 11.6 (11.6-14.4) % Plt Count 365 H (163-337) x10^3/uL MPV 9.4 (9.4-12.4) fL Gran % 66.0 (34.0-67.9) % Immature Gran % (Auto) 0.3 (0.001-0.429) % Nucleat RBC Rel Count 0.0 (0.00-0.2) % Eos # (Auto) 0.03 L (0.04-0.54) x10^3/uL Immature Gran # (Auto) 0.03 (0.001-0.031) x10^3u/L Absolute Lymphs (auto) 2.07 (1.32-3.57) x10^3/uL Absolute Monos (auto) 0.84 H (0.30-0.82) x10^3/uL Absolute Nucleated RBC 0.00 (0.00-0.012) x10^3u/L Lymphocytes % 23.4 (21.8-53.1) % Monocytes % 9.5 (5.3-12.2) % Eosinophils % 0.3 L (0.8-7.0) % Basophils % 0.5 (0.2-1.2) % Absolute Granulocytes 5.85 H (1.78-5.38) x10^3/uL Basophils # 0.04 (0.01-0.08) x10^3/uL Sodium 139 (135-145) mmol/L Potassium 3.6 (3.5-5.1) mmol/L Chloride 103 (98-107) mmol/L Carbon Dioxide 20 L (22-30) mmol/L Anion Gap 19.7 H (5-15) MEQ/L BUN 29 H (9-20) mg/dL Creatinine 1.07 (0.66-1.25) mg/dL Estimated GFR 77.5 ML/MIN Glucose 111 H (74-106) mg/dL Lactic Acid (0.4-2.0) Calcium 10.3 H (8.4-10.2) mg/dL Magnesium (1.6-2.3) mg/dL Total Bilirubin 0.90 (0.2-1.3) mg/dL AST 49 (17-59) U/L ALT 39 (0-50) U/L Alkaline Phosphatase 78 (38-126) U/L Troponin I (0.000-0.033) ng/mL Serum Total Protein 8.1 (6.3-8.2) g/dL Albumin 5.0 (3.5-5.0) g/dL Amylase 93 (30-110) U/L Lipase 95 (23-300) U/L Urine Color (Yellow) Urine Appearance (Clear) Urine pH (4.6-8.0) Ur Specific Bruno (1.005-1.030) Urine Protein (Negative) Urine Glucose (UA) (Negative) mg/dL Urine Ketones (Negative) Urine Blood (Negative) Urine Nitrite (Negative) Urine Bilirubin (Negative) Urine Urobilinogen (0.2) mg/dL Ur Leukocyte Esterase (Negative) U Hyaline Cast (Auto) (0-2) /LPF Urine Microscopic RBC (0-5) /HPF Urine Microscopic WBC (0-5) /HPF Ur Epithelial Cells (None Seen) /HPF Urine Bacteria (None Seen) /HPF Urine Culture Reflexed (NO) Monoscreen (NEGATIVE) Influenza Type A Ag (NEGATIVE) Influenza Type B Ag (NEGATIVE) RSV (PCR) (NEGATIVE) SARS-CoV-2 (PCR) (NEGATIVE) - Progress Progress: improved, re-examined Progress Note: 12/06/23 09:56 My medical decision making and the assignment of moderate complexity to this patient's medical issue today is based on review of the patient's past medical h istory, review of the patient's medication list, reviewed patient drug allergy list, history presence and physical findings on examination. The workup in this patient includes placement of intravenous line, infusion of normal saline solution, infusion of Compazine antiemetic, infusion of intravenous Protonix, CBC, CMP, lactic acid level, amylase, lipase, urinalysis, magnesium level, troponin level, twelve-lead EKG, CT scan of the abdomen pelvis without contrast. Differential diagnosis includes but is not limited to acute cardiac issue, electrolyte abnormalities, dehydration, arrhythmia, acute intraabdominal and intra pelvic abnormality, viral illness 12/06/23 11:24 CT scan of the abdomen pelvis without contrast was interpreted by the radiologist and I reviewed the impression. The impression states diverticulosis of the descending and sigmoid colon without complications. There is a 6.5 mm left pulmonary lobe nodule. Recommend outpatient CT scan of the chest. There is a moderately enlarged prostate gland. There is moderate liver steatosis. There is an approximate 9 mm x 9 mm irregular left kidney hyperdense cyst. There is bilateral fat-containing inguinal hernias and a fat-containing umbilical hernia. These findings were discussed with the patient and his spouse. 12/06/23 12:53 I interpreted the patient's laboratory data results. Based on the laboratory data results, the patient was significantly dehydrated. We did provide the patient with 2 L of intravenous crystalloid. We will give a fluid challenge and if tolerates clear liquids well, we will discharge the patient home with a prescription of Zofran to be remotely sent to his pharmacy. Counseled pt/family regarding: lab results, diagnosis, need for follow-up, rad results Medical Desision Making - Independent Historian Additional History obtained from: Spouse - Diagnostic Testing Diagnostic test were ordered, analyzed, and reviewed by me: Yes Radiological Interpretation: Reviewed by me, Teleradiologist Report - Risk of complications The pt has a mod risk of morbidity or mortality based on: Need for prescription drug management - Departure Departure Disposition: Home Clinical Impression: Vomiting, Dehydration, Left lower lobe pulmonary nodule, Renal cyst, left, Enlarged prostate Condition: Stable Critical Care Time: No Referrals: KALPANA PALUMBO MD [Primary Care Provider] - Follow up/PCP as directed Additional Instructions: Drink plenty of clear liquids before advancing your diet. Avoid fatty greasy spicy foods for the next 24 to 48 hours. Take your medications as prescribed. Call your primary care provider on 12/08/2023 to make arranges for follow-up appointment for further evaluation and management and to discuss the findings of the left lung nodule and the left renal cyst and enlarged prostate. Prescriptions: Ondansetron ODT 4 MG [Zofran Odt 4 mg] 4 mg PO Q6H PRN PRN #10 tablet PRN Reason: Vomiting
[2023-12-06 09:42] VITALS: TEMP 97.5
[2023-12-06] MEDS ORDERED: PROTONIX 40 MG IV IV ONE (10:02)
[2023-12-06] MEDS ORDERED: Compazine 10 MG/2 ML ONE (10:02)
[2023-12-06] MEDS ORDERED: Sodium Chloride 0.9% 1000 ML 1,000 ML ONE (10:02)
[2023-12-06] MEDS: Compazine 10 MG/2 ML IV ONE (10:04)
[2023-12-06] MEDS: Sodium Chloride 0.9% 1000 ML 1,000 ML IV STA (10:04)
[2023-12-06] MEDS: PROTONIX 40 MG IV IV ONE (10:04)
[2023-12-06 10:14] LABS: Absolute Neutrophil Ct (ANC) 5.85 x10^3/uL (1.78-5.38); BASOPHIL % 0.5 % (0.2-1.2); Basophil (Absolute #) 0.04 x10^3/uL (0.01-0.08); Eosinophil % 0.3 % (0.8-7.0); Eosinophil (Absolute #) 0.03 x10^3/uL (0.04-0.54); Hematocrit 43.8 % (40.1-51.0); Hemoglobin 15.3 g/dL (13.7-17.5); IMMATURE GRAN # 0.03 x10^3u/L (0.001-0.031); IMMATURE GRAN % 0.3 % (0.001-0.429); Lymphocyte (Absolute #) 2.07 x10^3/uL (1.32-3.57); Lymphocytes % 23.4 % (21.8-53.1); Mean Cell Volume 90.3 fL (79.0-92.2); Mean Corpuscular Hemoglobin 31.5 pg (25.7-32.2); Mean Corpuscular Hgb Concent. 34.9 g/dL (32.3-36.5); Mean Platelet Volume 9.4 fL (9.4-12.4); Monocyte (Absolute #) 0.84 x10^3/uL (0.30-0.82); Monocytes % 9.5 % (5.3-12.2); Platelet Count 365 x10^3/uL (163-337); Red Blood Count 4.85 x10^6/uL (4.63-6.08); Red Cell Distribution Width 11.6 % (11.6-14.4); White Blood Count 8.9 x10^3/uL (4.23-9.07)
[2023-12-06 10:26] LABS: ANION GAP 19.7 MEQ/L (5-15); BILIRUBIN,TOTAL 0.9 mg/dL (0.2-1.3); Calcium 10.3 mg/dL (8.4-10.2); Creatinine 1 1.07 mg/dL (0.66-1.25); EST GLOMERULAR FILTRATION RATE 77.5 ML/MIN; Potassium 3.6 mmol/L (3.5-5.1); Total Protein 8.1 g/dL (6.3-8.2)
[2023-12-06] MEDS ORDERED: Zofran 4 MG/2 ML VIAL ONE (10:54)
[2023-12-06] MEDS ORDERED: Lactated Ringers 1,000 ML IV ONE (10:54)
[2023-12-06] MEDS: Zofran 4 MG/2 ML VIAL IV ONE (10:55)
[2023-12-06] MEDS: Lactated Ringers 1,000 ML IV ONE (10:55)
--- NOTE | 2023-12-06 11:05 | XRAY ---
CLINICAL HISTORY: Intractable vomiting COMPARISON: none TECHNIQUE: CT of the abdomen and pelvis was performed with axial images as well as sagittal and coronal reconstruction images without intravenous contrast. Images were reviewed in soft tissue and bone window settings. Total DLP:1022 mGy*cm, CTDI: 18.19 mGy. One of the following dose-reduction techniques was utilized for this exam. Automated exposure control, adjustment of the mA and/or kV according to patient size, and use of iterative reconstruction FINDINGS: The liver is of average size. No focal parenchymal abnormality. it shows diffusely mild hypodensity suggesting liver steatosis. The portal vein, intrahepatic biliary radicals, and the bile ducts are normal. The spleen, pancreas, and adrenal glands are unremarkable. The gallbladder is distended and shows no definite stones. There is no evidence of wall thickening/ pericholecystic collection. The kidneys are unremarkable. They are normal in size and shape. No calculi or hydronephrosis. 9.5 x 8.6mm hyperdense cyst seen in left kidney. The urinary bladder is unremarkable. The rectosigmoid colon is unremarkable. Moderately enlarged prostate. No free air in the abdomen, and there is no free fluid in the cul de sac Multiple uncomplicated diverticulosis in the descending colon and the sigmoid. The appendix is not seen, however no inflammatory changes in the right iliac fossa. the caecum is unremarkable The rest small and large bowels are unremarkable Uncomplicated bilateral fat-containing inguinal hernia. Fat-containing umbilical hernia seen. There is no evidence of significant enlargement of the retroperitoneal lymph nodes. Moderate degenerative changes of the lumbar spine, more prominent at L3-L4 and L5-S1 levels. Mild scoliosis of the lumbar spine with convexity towards right side. 6.5mm nodule seen in left lower lobe, would recommend CT scan chest for further evaluation. IMPRESSION: 1. Multiple uncomplicated diverticulosis in the descending colon and the sigmoid. 2. 6.5mm nodule seen in left lower lobe, would recommend CT scan chest for further evaluation. 3. Moderately enlarged prostate. Need for better assessment with the US. 4. 9.5 x 8.6mm hyperdense cyst seen in left kidney. 5. Moderate liver steatosis. Electronically Signed by: Aki Prabhakar MD. (12/06/2023 11:00:03 EDT)
[2023-12-06 11:13] LABS: INFLUENZA A NEGATIVE (NEGATIVE); INFLUENZA B NEGATIVE (NEGATIVE); RESPIRATORY SYNCTIAL VIRUS NEGATIVE (NEGATIVE); SARS-CoV-2 Xpert Express NEGATIVE (NEGATIVE)
[2023-12-06 12:36] LABS: Appearance Clear (Clear); Bacteria None Seen /HPF (None Seen); Bilirubin Negative (Negative); Blood Negative (Negative); Epithelial Cells None Seen /HPF (None Seen); Glucose, Urine Negative (Negative); Hyaline Casts NONE SEEN /LPF (0-2); Ketones 80 (Negative); Leukocyte Esterase Negative (Negative); Nitrite Negative (Negative); Protein,Urine Dip 30 (Negative); Specific Gravity 1.025 (1.005-1.030); WBC 0-2 /HPF (0-5)
[2023-12-06 12:43] LABS: ADD URINE CULTURE? NO (NO)
[2023-12-06 13:02] VITALS: BP 136/90; PULSE 69; RESP 18; O2SAT 96
== END 2023-12-06 13:33 | disposition home or self-care (01) ==
LOC: ED 09:35
DX: R11.2 Nausea with vomiting, unspecified (principal); E86.0 Dehydration; R91.1 Solitary pulmonary nodule; N28.1 Cyst of kidney, acquired; N40.0 Benign prostatic hyperplasia without lower urinary tract symptoms; I10 Essential (primary) hypertension; E78.5 Hyperlipidemia, unspecified; Z79.899 Other long term (current) drug therapy
CPT/HCPCS: 0241U; 36000; 36415; 74176; 80053; 81001; 82150; 83605; 83690; 83735; 84484; 85025; 86308; 93005; 96360; 96361; 96374; 96375; 99284; J2405

== ENCOUNTER 2024-05-13 13:57 | Day surgery (SDC) | payer MEDICARE, SELFPAY ==
[2024-05-13] MEDS ORDERED: methylPREDNISolone acetate IM ONE (13:58)
[2024-05-13] MEDS ORDERED: LIDOCAINE HCL 1% 50 MG/5 ML VL IJ ONE (13:58)
[2024-05-13] MEDS ORDERED: BUPIVACAINE 0.5% VIAL IJ ONE (13:58)
--- NOTE | 2024-05-13 17:17 | XRAY ---
Indication: Bilateral greater trochanter bursa and right hip injection. Intraoperative fluoroscopy provided for 18 seconds. 3 digital spot images submitted for interpretation demonstrates needle tips projecting lateral to left and right greater trochanters. Additional needle tip lateral to the right femur neck. Small amount of contrast injected for all needle tip placement. Correlate with intraoperative findings/report.
--- NOTE | 2024-05-13 17:33 | XRAY ---
18 seconds of fluoroscopy was used in surgery for a bilateral greater trochanteric bursa and right intra-articular hip injection.
== END 2024-05-13 17:00 | disposition home or self-care (01) ==
LOC: SDC-PAIN 13:57
PROVIDERS: ATTEND Psychiatry & Neurology Pain Medicine
DX: M16.11 Unilateral primary osteoarthritis, right hip (principal); M70.61 Trochanteric bursitis, right hip
CPT/HCPCS: 20610; 73521; 77002; J1010; Q9966